=== PATIENT | male | born 1965 | race Caucasian/White ===

== ENCOUNTER → 2018-01-08 | Outpatient (CLI) | payer OTHER | LOC: BMCIMAGING 08:53 | PROVIDERS: ATTEND Internal Medicine | DX: R05 Cough (principal); R91.8 Other nonspecific abnormal finding of lung field ==

== ENCOUNTER → 2018-01-22 | Outpatient (CLI) | payer OTHER | LOC: FIMAGING 14:23 | PROVIDERS: ATTEND Internal Medicine | DX: R91.1 Solitary pulmonary nodule (principal) ==

== ENCOUNTER 2018-02-04 07:10 | Day surgery (SDC) | payer OTHER ==
[2018-02-04] MEDS ORDERED: ALTEPLASE 2 MG VIAL IVP PRN (07:51)
[2018-02-04] MEDS ORDERED: FLUMAZENIL 0.5 MG/5 ML MDV IVP PRN (07:51)
[2018-02-04] MEDS ORDERED: MEPERIDINE 25 MG/ML SYR IVP PRN (07:51)
[2018-02-04] MEDS ORDERED: GLUCAGON HCL 1 MG VIAL IVP PRN (07:51)
[2018-02-04] MEDS ORDERED: HEPARIN 10,000 UNIT/10 ML MDV (1,000 UNIT/ML) IVP PRN (07:51)
[2018-02-04] MEDS ORDERED: NALOXONE HCL 0.4 MG/ML INJ IVP PRN (07:51)
[2018-02-04] MEDS ORDERED: PROTAMINE SULFATE 50 MG/5 ML VIAL IVP PRN (07:51)
[2018-02-04] MEDS: NS 1,000 ML IV SCH ×2 (08:42→09:02)
[2018-02-04] MEDS: MIDAZOLAM 2 MG/2 ML VIAL IVP PRN ×2 (08:42→09:02)
[2018-02-04] MEDS: fentaNYL 100 MCG/2 ML INJ IVP PRN ×2 (08:42→09:02)
[2018-02-04 09:08] LABS: PROTIME(PATIENT) 13.4 SEC (12.0-15.0)
--- NOTE | 2018-02-04 09:17 | PDPROPOC ---
Sedation Plan of Care Sedation Plan of Care: vital signs stable, mental status noted, patient educated of risks, benefits, alternatives, patient can tolerate sedation ASA Classification: ASA 1 Planned drugs: fentanyl, midazolam Mallampati Score: Class 1 Mallampati Reference Image: Patient passed 3-3-2 rule?: Yes
--- NOTE | 2018-02-04 09:17 | PDGENHP ---
History & Physical Chief Complaint: RIGHT LUNG MASS History of Present Illness: RIGHT LUNG MASS Pertinent Past, Social, Family History: PRIOR RIGHT SHOULDER AND LEFT KNEE SURGERY Relevant Physical Exam: LUNGS CLEAR, AIRWAY PATENT Cardiorespiratory Assessment: RRR , CLEAR LUNGS
[2018-02-04] MEDS ORDERED: LIDOCAINE 1% 300 MG/30 ML SDV ONE (09:20)
[2018-02-04] MEDS ORDERED: ONDANSETRON 4 MG/2 ML VIAL IVP PRN (10:34)
[2018-02-04] MEDS ORDERED: ACETAMINOPHEN 325 MG TAB PO PRN (10:34)
--- NOTE | 2018-02-04 10:43 | PDRADPN ---
Radiology Procedure Note Date of Procedure: 02/04/18 Radiologist: Mariusz Turner Anesthesia: IV Sedation, Local (Specify) Pre-op Diagnosis: RUL LUNG MASS Post-op Diagnosis: RUL LUNG MASS Indication: RUL LUNG MASS Procedure: CT GUIDED BX RUL LUNG MASS Finding(s): RUL LUNG MASS 1.5 CM Inf/Abcess present in the surg proc area at time of surgery?: No Depth: Organ Space (RUL LUNG) Complications: TINY PTX AT SITE , CXR PENDING Specimen(s): 4 LUNG SPECIMENS SENT TO PATH , TOUCH PREP ADEQUATE
[2018-02-04 14:01] VITALS: BP 110/79
== END 2018-02-04 14:00 | disposition home or self-care (01) ==
LOC: FIMAGING 07:10
PROVIDERS: ATTEND Internal Medicine
PROC: 0BBC3ZX Excision of Right Upper Lung Lobe, Percutaneous Approach, Diagnostic (ICD-10-PCS; principal; 2018-02-04 10:26)
DX: R91.1 Solitary pulmonary nodule (principal)
CPT/HCPCS: J2250; J2310; J3010

== ENCOUNTER → 2018-02-08 | Outpatient (CLI) | payer OTHER | LOC: FLAB 10:09 | PROVIDERS: ATTEND Internal Medicine | DX: Z09 Encounter for follow-up examination after completed treatment for conditions other than malignant neoplasm (principal); R05 Cough; R91.1 Solitary pulmonary nodule; Z87.09 Personal history of other diseases of the respiratory system ==

== ENCOUNTER → 2019-02-21 | Outpatient (CLI) | payer OTHER | LOC: FIMAGING 12:21 ==